=== PATIENT | male | born 1985 | race African-American/Black ===

== ENCOUNTER 2022-01-24 17:43 | Emergency (ER) | payer OTHER ==
[2022-01-24 18:06] VITALS: BP 128/79; PULSE 83; TEMP 97.9; BMI 25.0
== END 2022-01-24 21:07 | disposition home or self-care (01) ==
LOC: JERFT 17:43
DX: M25.571 Pain in right ankle and joints of right foot (principal)
CPT/HCPCS: 73610-TC-RT-FY; 73630-TC-RT-FY; 99281-25